=== PATIENT | female | born 1985 | race Caucasian/White ===

== ENCOUNTER 2016-12-11 16:58 | Emergency (ER) | payer OTHER ==
[~2016-12-11] VITALS: Ht 157.5 cm; Wt 65.0 kg
[2016-12-11 17:02] VITALS: Ht 157.5 cm; Wt 65.0 kg
[2016-12-11] MEDS ORDERED: LORAZEPAM 1 MG TAB PO ONE (17:30)
--- NOTE | 2016-12-11 17:58 | ERD ---
ER Documentation Chief Complaint Date/Time DATE: 12/11/16 TIME: 17:57 Chief Complaint CODE GREEN PICU IN ED FOR EVAL OF ANXIETY EPISODE. PT A&OX4 HPI Patient is a 31-year-old female with no medical problems who presents saying " my hands got stuck weird". It happened just prior to arrival. She was brought to the ER as a code green. She has been breathing fast and anxious because her 3-year-old daughter is sick in the PICU with asthma. The patient does not currently have a primary doctor. This is the first visit to the ER. ROS All systems reviewed and are negative except as per history of present illness. Medications Home Meds Active Scripts Lorazepam* (Lorazepam*) 1 Mg Tablet, 1 MG PO Q8, #6 TAB Prov:PRIMO EVANS MD 12/11/16 Allergies Allergies: Coded Allergies: No Known Allergy (Unverified , 12/11/16) PMhx/Soc Medical and Surgical Hx: pt denies Medical Hx, pt denies Surgical Hx Hx Alcohol Use: No Hx Substance Use: No Hx Tobacco Use: No Smoking Status: Never smoker FmHx Family History: No diabetes Physical Exam Vitals Vital Signs Date Time Temp Pulse Resp B/P Pulse Ox O2 Delivery O2 Flow Rate FiO2 12/11/16 18:49 97.9 80 18 130/77 100 Room Air 12/11/16 17:15 89 20 140/77 100 Room Air 12/11/16 17:02 98.5 95 28 134/76 100 Physical Exam Const: Anxious Head: Atraumatic Eyes: Normal Conjunctiva ENT: Normal External Ears, Nose and Mouth. Neck: Full range of motion..~ No meningismus. Resp: Hyperventilating Cardio: Regular rate and rhythm, no murmurs Abd: Soft, non tender, non distended. Normal bowel sounds Skin: No petechiae or rashes Back: No midline or flank tenderness Ext: Carpal spasm bilaterally Neur: Awake and alert Psych: Anxious Results 24 hrs Laboratory Tests Test 12/11/16 17:11 Bedside Glucose 165mg/dL Current Medications Medications (Trade) Dose Ordered Sig/[place] Route PRN Reason Start Time Stop Time Status Last Admin Dose Admin Lorazepam (Ativan) 1 mg ONCE ONCE PO 12/11/16 17:30 12/11/16 17:31 DC 12/11/16 17:12 Procedures/MDM EKG read by me: Rate/Rhythm: Regular rate and rhythm at a rate of 96 Intervals: Normal Impression: No evidence of ischemia or arrhythmia Accu-Chek is normal. Patient is a 31-year-old female who presents with carpal pedal spasm and panic attack. The patient was given Ativan and feels better. Her Accu-Chek and EKG were normal. At this point I believe outpatient management is appropriate. The patient will need to follow-up closely with a primary doctor within 24-48 hours. She can return sooner for any worsening symptoms. The patient understands the plan and is okay for discharge at this time. Departure Diagnosis: Primary Impression: Anxiety attack Condition: Fair Patient Instructions: Panic Attack Referrals: Your doctor Additional Instructions: Call your primary care doctor TOMORROW for an appointment during the next 1-2 days.See the doctor sooner or return here if your condition worsens before your appointment time. PRIMO EVANS MD Dec 11, 2016 17:58
[2016-12-11] MEDS ORDERED: LORA1TAB PO (17:59)
[2016-12-11 18:49] VITALS: BP 130/77; PULSE 80; RESP 18; TEMP 97.9
== END 2016-12-11 18:49 | disposition home or self-care (01) ==
LOC: E/R 16:58
DX: F41.9 Anxiety disorder, unspecified (principal); R06.02 Shortness of breath; R40.2142 Coma scale, eyes open, spontaneous, at arrival to emergency department; R40.2252 Coma scale, best verbal response, oriented, at arrival to emergency department; R40.2362 Coma scale, best motor response, obeys commands, at arrival to emergency department
CPT/HCPCS: 82962; 93005; Z7502; Z7610